=== PATIENT | female | born 1975 | race Hispanic/Latino ===

== ENCOUNTER → 2025-01-27 | Outpatient (CLI) | payer BC ==
--- NOTE | 2025-01-27 20:46 | HMCSR ---
APPROVED REPORT EXAM: Two-dimensional and M-mode echocardiogram with Doppler and color Doppler. INDICATION ICD: Hypertension 2D Dimensions RVDd 3.4 cm LVEF(%) 50.4 (>50%) LVED Vol(simp.) 88.0 mL IVSd 0.8 (0.7-1.1cm) FS(%) 25 % LVES Vol(simp.) 39.0 mL LVDd 4.4 (3.8-5.6cm) LA (2D) 4.0 (1.6-4.0cm) LVEF(%, simp.) 55 % PWd 0.7 (0.7-1.1cm) Ao Root(2D) 2.8 (2.0-3.7cm) LA ESV INDEX (BP) 28.20 mL/m2 IVSs 0.7 cm LVOT diam 2.0 (1.8-2.4cm) LVDs 3.3 (2.5-4.0cm) IVC diam 1.3 cm PWs 1.2 cm M-Mode Dimensions EPSS 0.9 cm LA (MM) 4.3 (1.6-4.0cm) Ao Root(MM) 2.3 (2.0-3.7cm) Aortic Valve AoV Vmax 1.0 m/s Ao Peak GR 4.4 mmHg LVOT Vmax 0.8 m/s AoV VTI 0.2 m Ao Mean GR 2.4 mmHg LVOT VTI 0.18 m DEBORA (VMAX) 2.50 cm2 DEBORA (VTI) 2.8 cm2 Mitral Valve MV E Vmax 63.8 cm/s DECEL Time 169 ms MV A Vmax 59.5 cm/s P 1/2 T 44 ms E/A ratio 1.1 MVA (PHT) 5.1 cm2 TDI E/E' Medial 12.4 E/E' Lateral 8.9 Medial E' Peak V 5.16 cm/s Lateral E' Peak V 7.20 cm/s Pulmonary Valve PV Vmax 0.9 m/s PV Mean GR 1.8 mmHg PV Peak GR 2.9 mmHg Left Ventricle The left ventricle is normal size. There is normal LV segmental wall motion. There is normal left ventricular wall thickness. LVEF is 55%. The left ventricular diastolic function is indeterminatel. Right Ventricle The right ventricle is normal size. The right ventricular systolic function is normal. Atria The left atrium size is normal. The right atrium size is normal. Aortic Valve The aortic valve is normal in structure. No aortic regurgitation is present. There is no aortic valvular stenosis. Mitral Valve The mitral valve is normal in structure. There is no mitral valve regurgitation noted. There is no mitral valve stenosis. Tricuspid Valve The tricuspid valve is normal in structure. There is no tricuspid valve regurgitation noted. Pulmonic Valve The pulmonary valve is normal in structure. There is no pulmonic valvular regurgitation. Great Vessels The aortic root is normal in size. The IVC is normal in size and collapses >50% with inspiration. Pericardium There is no pericardial effusion. Conclusion LVEF is 55%.
== END | disposition home or self-care (01) ==
LOC: RAH 12:37
PROVIDERS: ATTEND Family Medicine
DX: I10 Essential (primary) hypertension (principal)
CPT/HCPCS: 93306